=== PATIENT | male | born 1975 | race Caucasian/White ===

== ENCOUNTER 2017-01-30 13:09 | Emergency (ER) | payer MEDICAID ==
[~2017-01-30] VITALS: Ht 185.4 cm; Wt 86.2 kg
--- NOTE | 2017-01-30 13:10 | NUR ---
Patient to ER bed 01 to gown for evaluation. Side rails up. Report given to Junaid
--- NOTE | 2017-01-30 13:15 | NUR ---
ER at bedside examining patient.
[2017-01-30 13:16] VITALS: BP 123/74; PULSE 70; RESP 18; TEMP 98.3; O2SAT 95
--- NOTE | 2017-01-30 13:17 | NUR ---
Pt presents to ED c/o R hand pain s/p mech fall w/o syncope, head or neck injury.Pt denies other med hx. Pt has limited R hand.
[2017-01-30] MEDS ORDERED: IBUPROFEN 800 MG TABLET PO ONE (13:30)
--- NOTE | 2017-01-30 13:30 | NUR ---
Pt medicated.Will monitor.
--- NOTE | 2017-01-30 13:59 | NUR ---
Additional pain medication given
[2017-01-30] MEDS ORDERED: HYDROcodone/ACETAMIN 10-325 MG TAB PO ONE (14:00)
--- NOTE | 2017-01-30 14:00 | NUR ---
thumb spica Splint applied
--- NOTE | 2017-01-30 14:30 | NUR ---
Solomon kern in [facility] - 01/30/17 at 1439 by BEATRIZ Patient transported to radiology via wheelchair, accompanied by fred.
--- NOTE | 2017-01-30 14:30 | NUR ---
Patient given written and verbal discharge instructions and verbalizes understanding. ER MD discussed with patient the results and treatment provided. Patient in stable condition. ID arm band removed. IV catheter removed intact and dressing applied, no active bleeding. Rx of norco,motrin given. Patient educated on pain management and to follow up with PMD. Pain Scale 2 Opportunity for questions provided and answered.
[2017-01-30 14:34] VITALS: BP 122/74; PULSE 70; RESP 18; TEMP 98.3; O2SAT 95
== END 2017-01-30 14:34 | disposition home or self-care (01) ==
LOC: SED 13:09
DX: S63.91XA Sprain of unspecified part of right wrist and hand, initial encounter (principal); W01.0XXA Fall on same level from slipping, tripping and stumbling without subsequent striking against object, initial encounter; Y93.89 Activity, other specified; Y92.89 Other specified places as the place of occurrence of the external cause; Y99.8 Other external cause status
CPT/HCPCS: 99284